=== PATIENT | female | born 1950 | race Two or more races ===

== ENCOUNTER 2017-07-29 19:20 | Emergency (ER) | payer MEDICARE ==
[~2017-07-29] VITALS: Ht 157.5 cm; Wt 88.2 kg
[~2017-07-29 19:20] MED LIST: GABA-530 PO
[2017-07-29 19:59] LABS: BASOPHILS % (AUTO) 0.5 % (0-1); EOSINOPHILS # (AUTO) 0.5 X10'3 (0-0.9); EOSINOPHILS % (AUTO) 5.1 % (0-6); HEMATOCRIT 37.7 % (35.0-45.0); HEMOGLOBIN 13.1 g/dl (12.0-16.0); LYMPHOCYTES # (AUTO) 2.5 X10'3 (1.1-4.8); LYMPHOCYTES % (AUTO) 23.7 % (21-51); MEAN CORPUSCULAR HGB CONC 34.6 % (33.0-36.5); MEAN CORPUSCULAR VOLUME 80.8 FL (78-98); MEAN PLATELET VOLUME 7.1 FL (7.4-10.4); MONOCYTES # (AUTO) 0.5 X10'3 (0-0.9); NEUTROPHILS # (AUTO) 6.9 X10'3 (1.8-7.7); NEUTROPHILS % (AUTO) 65.7 % (42-75); PLATELET COUNT 285 X10'3 (140-440); RED BLOOD COUNT 4.66 X10'6 (4.20-5.60); RED CELL DISTRIBUTION WIDTH 12.7 % (11.5-14.5); WHITE BLOOD COUNT 10.6 X10'3 (4.5-11.0)
[2017-07-29 20:01] LABS: D-DIMER 0.32 MG/L FEU (0-0.50); PARTIAL THROMBOPLASTIN TIME 25 SECONDS (22-32)
[2017-07-29 20:09] LABS: ALANINE AMINOTRANSFERASE 23 U/L (12-78); ALBUMIN 3.7 G/DL (3.4-5.0); ALBUMIN/GLOBULIN RATIO 0.9 (1.1-1.5); ALKALINE PHOSPHATASE 92 IU/L (46-116); ANION GAP 9 (8-16); ASPARTATE AMINO TRANSFERASE 18 U/L (10-37); BILIRUBIN,TOTAL 0.4 MG/DL (0.1-1.0); BLOOD UREA NITROGEN 19 MG/DL (7-18); BUN/CREATININE RATIO 15.2 (6.6-38.0); CALCIUM 9.4 MG/DL (8.5-10.1); CHLORIDE 94 MMOL/L (99-107); CREATININE 1.25 MG/DL (0.40-0.90); GLUCOSE 228 MG/DL (70-104); POTASSIUM 4.1 MMOL/L (3.5-5.1); SODIUM 132 MMOL/L (135-145); TOTAL CARBON DIOXIDE 29.4 MMOL/L (24-32); TOTAL PROTEIN 7.9 G/DL (6.4-8.2); eGFR 43 ML/MIN
[2017-07-29] MEDS ORDERED: azithromycin 250mg tablet PO ONE (21:10)
[2017-07-29] MEDS ORDERED: AZIT-63 PO (21:10)
[2017-07-29 21:47] VITALS: BP 140/66
== END 2017-07-29 21:46 | disposition home or self-care (01) ==
LOC: ER 19:20
DX: J40 Bronchitis, not specified as acute or chronic (principal); H66.90 Otitis media, unspecified, unspecified ear; I44.7 Left bundle-branch block, unspecified; I50.9 Heart failure, unspecified; G89.29 Other chronic pain; Z88.2 Allergy status to sulfonamides
CPT/HCPCS: 36415; 71045; 80053; 83880; 84484; 85025; 85379; 85610; 85730; 93005; 99285

== ENCOUNTER 2017-09-20 11:04 | Emergency (ER) | payer MEDICARE ==
[~2017-09-20] VITALS: Ht 157.5 cm; Wt 89.5 kg
[2017-09-20 11:36] LABS: BASOPHILS # (AUTO) 0.1 X10'3 (0-0.2); BASOPHILS % (AUTO) 0.7 % (0-1); EOSINOPHILS # (AUTO) 0.2 X10'3 (0-0.9); EOSINOPHILS % (AUTO) 1.7 % (0-6); HEMATOCRIT 39.1 % (35.0-45.0); HEMOGLOBIN 13.2 g/dl (12.0-16.0); LYMPHOCYTES # (AUTO) 1.7 X10'3 (1.1-4.8); LYMPHOCYTES % (AUTO) 15.1 % (21-51); MEAN CORPUSCULAR HEMOGLOBIN 28.1 PG (27.0-31.0); MEAN CORPUSCULAR HGB CONC 33.8 % (33.0-36.5); MEAN CORPUSCULAR VOLUME 83.1 FL (78-98); MEAN PLATELET VOLUME 6.9 FL (7.4-10.4); MONOCYTES # (AUTO) 0.7 X10'3 (0-0.9); MONOCYTES % (AUTO) 6.6 % (2-12); NEUTROPHILS # (AUTO) 8.6 X10'3 (1.8-7.7); NEUTROPHILS % (AUTO) 75.9 % (42-75); PLATELET COUNT 290 X10'3 (140-440); RED BLOOD COUNT 4.71 X10'6 (4.20-5.60); RED CELL DISTRIBUTION WIDTH 13.4 % (11.5-14.5); WHITE BLOOD COUNT 11.4 X10'3 (4.5-11.0)
[2017-09-20 11:53] LABS: ALANINE AMINOTRANSFERASE 30 U/L (12-78); ALBUMIN 3.5 G/DL (3.4-5.0); ALBUMIN/GLOBULIN RATIO 0.8 (1.1-1.5); ALKALINE PHOSPHATASE 96 IU/L (46-116); ANION GAP 8 (8-16); ASPARTATE AMINO TRANSFERASE 20 U/L (10-37); BILIRUBIN,TOTAL 0.5 MG/DL (0.1-1.0); BLOOD UREA NITROGEN 17 MG/DL (7-18); BUN/CREATININE RATIO 13.5 (6.6-38.0); CHLORIDE 97 MMOL/L (99-107); CREATININE 1.26 MG/DL (0.40-0.90); GLUCOSE 170 MG/DL (70-104); POTASSIUM 4.6 MMOL/L (3.5-5.1); SODIUM 132 MMOL/L (135-145); TOTAL PROTEIN 7.8 G/DL (6.4-8.2); eGFR 42 ML/MIN
[2017-09-20] MEDS ORDERED: ONDA4TAB6 PO (12:18)
[2017-09-20 12:48] VITALS: BP 140/70
[2017-09-20] MEDS ORDERED: TRAM50TA2 PO (12:49)
== END 2017-09-20 12:54 | disposition home or self-care (01) ==
LOC: ER 11:04
DX: M54.2 Cervicalgia (principal); M79.2 Neuralgia and neuritis, unspecified; I50.9 Heart failure, unspecified; G89.29 Other chronic pain; M19.90 Unspecified osteoarthritis, unspecified site; Z95.1 Presence of aortocoronary bypass graft; Z88.2 Allergy status to sulfonamides; Z79.899 Other long term (current) drug therapy
CPT/HCPCS: 36415; 71045; 80053; 84484; 85025; 93005; 99285

== ENCOUNTER 2017-10-16 10:25 | Observation (INO) | payer MEDICARE ==
[~2017-10-16] VITALS: Ht 157.5 cm; Wt 83.8 kg
[~2017-10-16 10:25] MED LIST changes: +ONDA4TAB6 PO; +TRAM50TA2 PO
[2017-10-16 10:50] LABS: BASOPHILS % (AUTO) 0.5 % (0-1); EOSINOPHILS # (AUTO) 0.4 X10'3 (0-0.9); EOSINOPHILS % (AUTO) 4.4 % (0-6); HEMATOCRIT 41.3 % (35.0-45.0); HEMOGLOBIN 13.8 g/dl (12.0-16.0); LYMPHOCYTES # (AUTO) 2.2 X10'3 (1.1-4.8); LYMPHOCYTES % (AUTO) 22.1 % (21-51); MEAN CORPUSCULAR HGB CONC 33.4 % (33.0-36.5); MEAN CORPUSCULAR VOLUME 83.8 FL (78-98); MONOCYTES # (AUTO) 0.7 X10'3 (0-0.9); MONOCYTES % (AUTO) 7.4 % (2-12); NEUTROPHILS # (AUTO) 6.5 X10'3 (1.8-7.7); NEUTROPHILS % (AUTO) 65.6 % (42-75); PLATELET COUNT 324 X10'3 (140-440); RED BLOOD COUNT 4.93 X10'6 (4.20-5.60); RED CELL DISTRIBUTION WIDTH 13.9 % (11.5-14.5); WHITE BLOOD COUNT 9.9 X10'3 (4.5-11.0)
[2017-10-16 11:01] LABS: PARTIAL THROMBOPLASTIN TIME 25 SECONDS (22-32); PROTHROMBIN TIME 9.9 SECONDS (9.0-12.0)
[2017-10-16 11:05] LABS: ALANINE AMINOTRANSFERASE 23 U/L (12-78); ALBUMIN 3.9 G/DL (3.4-5.0); ALBUMIN/GLOBULIN RATIO 0.8 (1.1-1.5); ALKALINE PHOSPHATASE 104 IU/L (46-116); ANION GAP 8 (8-16); ASPARTATE AMINO TRANSFERASE 17 U/L (10-37); BILIRUBIN,TOTAL 0.4 MG/DL (0.1-1.0); BLOOD UREA NITROGEN 13 MG/DL (7-18); BUN/CREATININE RATIO 11.2 (6.6-38.0); CALCIUM 9.5 MG/DL (8.5-10.1); CHLORIDE 97 MMOL/L (99-107); CREATININE 1.16 MG/DL (0.40-0.90); GLUCOSE 104 MG/DL (70-104); POTASSIUM 4.6 MMOL/L (3.5-5.1); SODIUM 134 MMOL/L (135-145); TOTAL CARBON DIOXIDE 28.9 MMOL/L (24-32); TOTAL PROTEIN 8.5 G/DL (6.4-8.2); eGFR 47 ML/MIN
[2017-10-16] MEDS ORDERED: nitroGLYCERIN 1gm ointment UD TP ONE (11:25)
[2017-10-16] MEDS ORDERED: aspirin 81mg tab.chew PO ONE (11:25)
[2017-10-16] MEDS ORDERED: LEVO100T PO (12:31)
[2017-10-16] MEDS ORDERED: FURO-149 PO (12:31)
[2017-10-16] MEDS ORDERED: MELA3TAB PO (12:31)
[2017-10-16] MEDS ORDERED: LISI40TA4 PO (12:31)
[2017-10-16] MEDS ORDERED: ATOR40TA PO (12:31)
[2017-10-16] MEDS ORDERED: MECL-111 PO (12:31)
[2017-10-16] MEDS ORDERED: METO-384 PO (12:31)
[2017-10-16] MEDS ORDERED: METF500T PO (12:31)
[2017-10-16] MEDS ORDERED: FLUO20CA22 PO (12:31)
[2017-10-16] MEDS ORDERED: ONDA8TAB9 PO (12:31)
[2017-10-16] MEDS ORDERED: ASPI-1265 PO (12:31)
[2017-10-16] MEDS ORDERED: ONDA4TAB6 PO (12:32)
[2017-10-16] MEDS ORDERED: BACL10TA PO (12:32)
[2017-10-16] MEDS ORDERED: morphine 4 MG/ML inj SYRINge IV PRN ×2 (13:00)
[2017-10-16] MEDS ORDERED: insulin Lispro (HumaLOG) vial - multi-dose SQ SCH (13:00)
[2017-10-16] MEDS ORDERED: dextrose 50%-water 50ml dispensing syringe IV PRN ×2 (13:00)
[2017-10-16] MEDS ORDERED: glucagon, human recombinant 1mg kit SUBCUT PRN (13:00)
[2017-10-16] MEDS ORDERED: magnesium hydroxide 30ml (MOM) UD suspension PO PRN (13:00)
[2017-10-16] MEDS ORDERED: MESSAGE TO PHARMACY PO ONE (13:00)
[2017-10-16] MEDS ORDERED: ondansetron/PF 4mg/2ml inj IV PRN (13:00)
[2017-10-16] MEDS ORDERED: mag hydrox/Alum hydrox/simeth 30ml oral suspension PO PRN (13:00)
[2017-10-16] MEDS ORDERED: dextrose ORAL solution 15 GM/59 ML bottle PO PRN ×2 (13:00)
[2017-10-16] MEDS ORDERED: nitroGLYCERIN 0.4mg SUBLingual tab SL PRN (13:00)
[2017-10-16] MEDS ORDERED: non-formulary drug (Ondansetron Hcl (Zofran) 1 TAB) PO SCH (13:20)
[2017-10-16] MEDS ORDERED: baclofen 10mg tablet PO PRN (13:20)
[2017-10-16] MEDS ORDERED: non-formulary drug (Meclizine HCl 1 TAB) PO SCH (13:20)
[2017-10-16] MEDS ORDERED: ondansetron 4mg rapidly disintigrating tab PO PRN (13:30)
[2017-10-16] MEDS ORDERED: meclizine 12.5mg tablet PO PRN (13:30)
[2017-10-16 14:14] LABS: HEMOGLOBIN A1C 6.2 % (4.5-6.2)
[2017-10-16 16:41] VITALS: BP 143/62
[2017-10-16] MEDS ORDERED: furosemide 40mg/4ml inj IV ONE (17:30)
[2017-10-16 18:00] VITALS: BP 125/67
[2017-10-16] MEDS: metFORMIN 500mg tablet PO SCH (20:31)
[2017-10-16] MEDS: furosemide 40mg tablet PO SCH (20:31)
[2017-10-16] MEDS: acetaminophen 325mg tablet PO PRN (20:32)
[2017-10-16] MEDS ORDERED: Melatonin 3mg tablet PO SCH (21:00)
[2017-10-16] MEDS ORDERED: insulin glargine (Lantus) pen - multi-dose SQ SCH (21:00)
[2017-10-17 05:05] LABS: BASOPHILS # (AUTO) 0.1 X10'3 (0-0.2); BASOPHILS % (AUTO) 0.8 % (0-1); EOSINOPHILS # (AUTO) 0.5 X10'3 (0-0.9); EOSINOPHILS % (AUTO) 4.7 % (0-6); HEMATOCRIT 35.9 % (35.0-45.0); HEMOGLOBIN 12.3 g/dl (12.0-16.0); LYMPHOCYTES # (AUTO) 2.2 X10'3 (1.1-4.8); LYMPHOCYTES % (AUTO) 22.1 % (21-51); MEAN CORPUSCULAR HEMOGLOBIN 28.1 PG (27.0-31.0); MEAN CORPUSCULAR HGB CONC 34.2 % (33.0-36.5); MEAN CORPUSCULAR VOLUME 82.3 FL (78-98); MONOCYTES # (AUTO) 0.8 X10'3 (0-0.9); MONOCYTES % (AUTO) 8.4 % (2-12); NEUTROPHILS # (AUTO) 6.4 X10'3 (1.8-7.7); PLATELET COUNT 274 X10'3 (140-440); RED BLOOD COUNT 4.36 X10'6 (4.20-5.60); RED CELL DISTRIBUTION WIDTH 14.2 % (11.5-14.5); WHITE BLOOD COUNT 10.1 X10'3 (4.5-11.0)
[2017-10-17 05:32] LABS: ALBUMIN 3.1 G/DL (3.4-5.0); ANION GAP 10 (8-16); BLOOD UREA NITROGEN 21 MG/DL (7-18); BUN/CREATININE RATIO 13.3 (6.6-38.0); CALCIUM 8.6 MG/DL (8.5-10.1); CHLORIDE 98 MMOL/L (99-107); CHOL/HDL RATIO 3.1 (0.00-4.99); CHOLESTEROL 159 MG/DL (0-200); CREATININE 1.58 MG/DL (0.40-0.90); GLUCOSE 153 MG/DL (70-104); HDL CHOLESTEROL 51 MG/DL (35-60); LDL CHOLESTEROL 79 MG/DL (50-100); POTASSIUM 3.7 MMOL/L (3.5-5.1); SODIUM 135 MMOL/L (135-145); TOTAL CARBON DIOXIDE 27.4 MMOL/L (24-32); TRIGLYCERIDES 219 MG/DL (20-135); eGFR 33 ML/MIN
[2017-10-17] MEDS: metFORMIN 500mg tablet PO SCH (07:42)
[2017-10-17] MEDS: furosemide 40mg tablet PO SCH (07:43)
[2017-10-17 07:50] VITALS: BP 131/75
[2017-10-17] MEDS: acetaminophen 325mg tablet PO PRN (07:54)
[2017-10-17] MEDS ORDERED: atorvastatin 20mg tablet PO SCH (08:00)
[2017-10-17] MEDS ORDERED: aspirin 81mg tablet.DR PO SCH (08:00)
[2017-10-17] MEDS ORDERED: metoprolol succinate 25mg (24-HOUR) SR. Tablet PO SCH (08:00)
[2017-10-17] MEDS ORDERED: levoTHYROXINE 100mcg tablet PO SCH (08:00)
[2017-10-17] MEDS ORDERED: non-formulary drug (Lisinopril* 1 TAB) PO SCH (08:00)
[2017-10-17] MEDS ORDERED: aspirin 81mg tab.chew PO SCH (08:00)
[2017-10-17] MEDS ORDERED: lisinopril 20mg tablet PO SCH (08:00)
[2017-10-17] MEDS ORDERED: non-formulary drug (Metoprolol Succinate 1 TAB) PO SCH (08:00)
[2017-10-17] MEDS ORDERED: non-formulary drug (Atorvastatin Calcium* (Lipitor*) 1 TAB) PO SCH (08:00)
[2017-10-17] MEDS ORDERED: FLUoxetine 20mg capsule PO SCH (08:00)
[2017-10-17 12:00] VITALS: BP 137/60
== END 2017-10-17 14:50 | disposition home or self-care (01) ==
LOC: ER 10:25 → ED HOLD 13:00 → EDBEDREQ 15:56 → SUR 3N 16:25
PROVIDERS: ADMIT Internal Medicine; ATTEND Internal Medicine
DX: R00.2 Palpitations (principal); R07.89 Other chest pain; E03.9 Hypothyroidism, unspecified; E11.9 Type 2 diabetes mellitus without complications; E78.5 Hyperlipidemia, unspecified; E78.00 Pure hypercholesterolemia, unspecified; F32.9 Major depressive disorder, single episode, unspecified; I11.0 Hypertensive heart disease with heart failure; I50.9 Heart failure, unspecified; I25.10 Atherosclerotic heart disease of native coronary artery without angina pectoris; J45.909 Unspecified asthma, uncomplicated; R42 Dizziness and giddiness; G89.29 Other chronic pain; R06.02 Shortness of breath; M19.90 Unspecified osteoarthritis, unspecified site; Z95.1 Presence of aortocoronary bypass graft; Z83.3 Family history of diabetes mellitus; Z79.899 Other long term (current) drug therapy; Z96.651 Presence of right artificial knee joint; Z90.49 Acquired absence of other specified parts of digestive tract
CPT/HCPCS: 36415; 71045; 80048; 80053; 80061; 82948; 83036; 83880; 84484; 85025; 85610; 85730; 87070; 93005; 93306; 96374; 99285; G0378; J1940; J1815

== ENCOUNTER 2017-10-26 14:23 | Emergency (ER) | payer MEDICARE ==
[~2017-10-26] VITALS: Ht 157.5 cm; Wt 90.6 kg
[~2017-10-26 14:23] MED LIST changes: +ASPI-1265 PO; +ATOR40TA PO; +BACL10TA PO; +FLUO20CA22 PO; +FURO-149 PO; -GABA-530 PO; +LEVO100T PO; +LISI40TA4 PO; +MECL-111 PO; +MELA3TAB PO; +METF500T PO; +METO-384 PO; -TRAM50TA2 PO
[2017-10-26] MEDS ORDERED: aspirin 81mg tab.chew PO ONE (15:10)
[2017-10-26 15:37] LABS: BASOPHILS # (AUTO) 0.1 X10'3 (0-0.2); BASOPHILS % (AUTO) 0.9 % (0-1); EOSINOPHILS # (AUTO) 0.4 X10'3 (0-0.9); EOSINOPHILS % (AUTO) 3.5 % (0-6); HEMATOCRIT 37.8 % (35.0-45.0); HEMOGLOBIN 13.1 g/dl (12.0-16.0); LYMPHOCYTES # (AUTO) 1.9 X10'3 (1.1-4.8); MEAN CORPUSCULAR HEMOGLOBIN 28.4 PG (27.0-31.0); MEAN CORPUSCULAR HGB CONC 34.5 % (33.0-36.5); MEAN CORPUSCULAR VOLUME 82.3 FL (78-98); MEAN PLATELET VOLUME 7.4 FL (7.4-10.4); MONOCYTES # (AUTO) 0.7 X10'3 (0-0.9); MONOCYTES % (AUTO) 7.2 % (2-12); NEUTROPHILS # (AUTO) 7.3 X10'3 (1.8-7.7); NEUTROPHILS % (AUTO) 70.4 % (42-75); PLATELET COUNT 266 X10'3 (140-440); RED CELL DISTRIBUTION WIDTH 13.9 % (11.5-14.5); WHITE BLOOD COUNT 10.4 X10'3 (4.5-11.0)
[2017-10-26] MEDS ORDERED: normal saline 1000ML IV soln IVB ONE (15:45)
[2017-10-26 16:02] LABS: MAGNESIUM 1.4 MG/DL (1.5-2.4)
[2017-10-26 16:38] LABS: ALANINE AMINOTRANSFERASE 27 U/L (12-78); ALBUMIN 3.6 G/DL (3.4-5.0); ALBUMIN/GLOBULIN RATIO 0.8 (1.1-1.5); ALKALINE PHOSPHATASE 97 IU/L (46-116); ANION GAP 14 (8-16); ASPARTATE AMINO TRANSFERASE 24 U/L (10-37); BILIRUBIN,TOTAL 0.4 MG/DL (0.1-1.0); BLOOD UREA NITROGEN 15 MG/DL (7-18); BUN/CREATININE RATIO 11.5 (6.6-38.0); CALCIUM 9.2 MG/DL (8.5-10.1); CHLORIDE 96 MMOL/L (99-107); CREATININE 1.31 MG/DL (0.40-0.90); GLUCOSE 147 MG/DL (70-104); POTASSIUM 3.8 MMOL/L (3.5-5.1); SODIUM 133 MMOL/L (135-145); TOTAL CARBON DIOXIDE 23.5 MMOL/L (24-32); TOTAL PROTEIN 7.9 G/DL (6.4-8.2); eGFR 40 ML/MIN
[2017-10-26] MEDS: magnesium 1gm/100ml D5W IVPB 100 ML IV SCH ×2 (18:09→18:58)
[2017-10-26] MEDS ORDERED: magnesium oxide 400mg tablet PO ONE (18:30)
[2017-10-26 20:33] VITALS: BP 158/85
== END 2017-10-26 20:34 | disposition home or self-care (01) ==
LOC: ER 14:24
DX: R00.2 Palpitations (principal); E83.42 Hypomagnesemia; I25.10 Atherosclerotic heart disease of native coronary artery without angina pectoris; I50.9 Heart failure, unspecified; E78.00 Pure hypercholesterolemia, unspecified; I11.0 Hypertensive heart disease with heart failure; E11.9 Type 2 diabetes mellitus without complications; J45.909 Unspecified asthma, uncomplicated; G89.29 Other chronic pain; Z90.49 Acquired absence of other specified parts of digestive tract; Z95.1 Presence of aortocoronary bypass graft; Z98.890 Other specified postprocedural states; Z88.2 Allergy status to sulfonamides; Z79.82 Long term (current) use of aspirin; Z79.84 Long term (current) use of oral hypoglycemic drugs; Z79.899 Other long term (current) drug therapy
CPT/HCPCS: 36415; 71045; 80053; 83735; 83880; 84443; 84484; 85025; 93005; 96361; 96365; 96366; 99285; J7030

== ENCOUNTER 2017-11-13 08:57 | Emergency (ER) | payer MEDICARE ==
[~2017-11-13] VITALS: Ht 157.5 cm; Wt 91.0 kg
[2017-11-13] MEDS ORDERED: morphine 4 MG/ML inj SYRINge IV PRN (09:40)
[2017-11-13] MEDS ORDERED: normal saline 1000ML IV soln IVB ONE (09:40)
[2017-11-13] MEDS ORDERED: proCHLORperazine 10 MG/2 ml inj IV ONE (09:40)
[2017-11-13 10:06] LABS: BASOPHILS # (AUTO) 0.1 X10'3 (0-0.2); EOSINOPHILS # (AUTO) 0.3 X10'3 (0-0.9); EOSINOPHILS % (AUTO) 3.3 % (0-6); HEMATOCRIT 41.4 % (35.0-45.0); HEMOGLOBIN 13.9 g/dl (12.0-16.0); LYMPHOCYTES # (AUTO) 2.1 X10'3 (1.1-4.8); LYMPHOCYTES % (AUTO) 20.8 % (21-51); MEAN CORPUSCULAR HEMOGLOBIN 28.4 PG (27.0-31.0); MEAN CORPUSCULAR HGB CONC 33.6 % (33.0-36.5); MEAN CORPUSCULAR VOLUME 84.6 FL (78-98); MEAN PLATELET VOLUME 6.9 FL (7.4-10.4); MONOCYTES # (AUTO) 0.9 X10'3 (0-0.9); MONOCYTES % (AUTO) 8.8 % (2-12); NEUTROPHILS # (AUTO) 6.5 X10'3 (1.8-7.7); NEUTROPHILS % (AUTO) 66.1 % (42-75); PLATELET COUNT 300 X10'3 (140-440); RED BLOOD COUNT 4.89 X10'6 (4.20-5.60); WHITE BLOOD COUNT 9.9 X10'3 (4.5-11.0)
[2017-11-13 10:20] LABS: ALANINE AMINOTRANSFERASE 23 U/L (12-78); ALBUMIN 3.4 G/DL (3.4-5.0); ALBUMIN/GLOBULIN RATIO 0.8 (1.1-1.5); ALKALINE PHOSPHATASE 105 IU/L (46-116); ANION GAP 7 (8-16); ASPARTATE AMINO TRANSFERASE 16 U/L (10-37); BILIRUBIN,TOTAL 0.4 MG/DL (0.1-1.0); BLOOD UREA NITROGEN 10 MG/DL (7-18); BUN/CREATININE RATIO 8.5 (6.6-38.0); CALCIUM 9.3 MG/DL (8.5-10.1); CHLORIDE 97 MMOL/L (99-107); CREATININE 1.17 MG/DL (0.40-0.90); GLUCOSE 122 MG/DL (70-104); POTASSIUM 4.9 MMOL/L (3.5-5.1); SODIUM 133 MMOL/L (135-145); TOTAL CARBON DIOXIDE 29.5 MMOL/L (24-32); TOTAL PROTEIN 7.8 G/DL (6.4-8.2); eGFR 46 ML/MIN
[2017-11-13 10:40] VITALS: BP 135/63
== END 2017-11-13 11:10 | disposition home or self-care (01) ==
LOC: ER 08:58
DX: R51 Headache (principal); R11.2 Nausea with vomiting, unspecified; M54.2 Cervicalgia; G89.29 Other chronic pain; I25.10 Atherosclerotic heart disease of native coronary artery without angina pectoris; I11.0 Hypertensive heart disease with heart failure; I50.9 Heart failure, unspecified; E03.9 Hypothyroidism, unspecified; E11.9 Type 2 diabetes mellitus without complications; M19.90 Unspecified osteoarthritis, unspecified site; E78.00 Pure hypercholesterolemia, unspecified; J45.909 Unspecified asthma, uncomplicated; Z90.49 Acquired absence of other specified parts of digestive tract; Z95.1 Presence of aortocoronary bypass graft; Z88.2 Allergy status to sulfonamides; Z79.82 Long term (current) use of aspirin; Z79.84 Long term (current) use of oral hypoglycemic drugs; Z79.899 Other long term (current) drug therapy
CPT/HCPCS: 36415; 70450; 80053; 85025; 85651; 96361; 96374; 96375; 99285; J0780; J2270; J7030

== ENCOUNTER 2018-05-08 14:19 | Emergency (ER) | payer MEDICARE ==
[~2018-05-08] VITALS: Ht 157.5 cm; Wt 93.2 kg
[~2018-05-08 14:19] MED LIST changes: +TRIA15CR61 TP
[2018-05-08 15:02] LABS: BASOPHILS # (AUTO) 0.1 X10'3 (0-0.2); BASOPHILS % (AUTO) 0.5 % (0-1); EOSINOPHILS # (AUTO) 0.2 X10'3 (0-0.9); EOSINOPHILS % (AUTO) 1.6 % (0-6); HEMATOCRIT 39.3 % (35.0-45.0); HEMOGLOBIN 13.4 g/dl (12.0-16.0); LYMPHOCYTES # (AUTO) 2.3 X10'3 (1.1-4.8); LYMPHOCYTES % (AUTO) 21.8 % (21-51); MEAN CORPUSCULAR HEMOGLOBIN 28.5 PG (27.0-31.0); MEAN CORPUSCULAR VOLUME 83.9 FL (78-98); MEAN PLATELET VOLUME 7.2 FL (7.4-10.4); MONOCYTES # (AUTO) 0.8 X10'3 (0-0.9); MONOCYTES % (AUTO) 7.3 % (2-12); NEUTROPHILS # (AUTO) 7.4 X10'3 (1.8-7.7); NEUTROPHILS % (AUTO) 68.8 % (42-75); PLATELET COUNT 321 X10'3 (140-440); RED BLOOD COUNT 4.68 X10'6 (4.20-5.60); RED CELL DISTRIBUTION WIDTH 13.1 % (11.5-14.5); WHITE BLOOD COUNT 10.8 X10'3 (4.5-11.0)
[2018-05-08 15:24] VITALS: BP 148/73
[2018-05-08 15:31] LABS: GLUCOSE 220 MG/DL (70-104)
[2018-05-08 15:32] LABS: ALANINE AMINOTRANSFERASE 29 U/L (12-78); ALBUMIN 3.9 G/DL (3.4-5.0); ALBUMIN/GLOBULIN RATIO 0.9 (1.1-1.5); ALKALINE PHOSPHATASE 92 IU/L (46-116); ANION GAP 13 (8-16); ASPARTATE AMINO TRANSFERASE 18 U/L (10-37); BILIRUBIN,TOTAL 0.4 MG/DL (0.1-1.0); BLOOD UREA NITROGEN 23 MG/DL (7-18); BUN/CREATININE RATIO 16.9 (6.6-38.0); CALCIUM 9.4 MG/DL (8.5-10.1); CHLORIDE 97 MMOL/L (99-107); CREATININE 1.36 MG/DL (0.40-0.90); POTASSIUM 4.2 MMOL/L (3.5-5.1); SODIUM 134 MMOL/L (135-145); TOTAL CARBON DIOXIDE 24.4 MMOL/L (24-32); TOTAL PROTEIN 8.4 G/DL (6.4-8.2); eGFR 39 ML/MIN
--- NOTE | 2018-05-08 16:22 | NUR ---
Isabelle ramos in [facility] - 05/08/18 at 1632 by YODIT PT COMES IN TO TRIAGE
--- NOTE | 2018-05-08 16:32 | NUR ---
PT WANTS TO LEAVE, NEEDS TO TAKE CARE OF HER DOGS AND TALK TO HER FAMILY ABOUT A TRIP TOMORROW. PT WILL COME BACK POSSIBLEY EARLY IN THE MORNING. WILL COME BACK SOONER IT NEEDED.
--- NOTE | 2018-05-08 16:35 | NUR ---
PT INFORMED THAT HER LABS AND CXRAY WERE NOT NORMAL AND SHE NEEDS TO F/U WITH PMD IF SHE CHOOSES TO LEAVE. PT DECIDES TO LEAVE AND MAY COME BACK LATER OR EARLY IN MORNING.
[2018-05-09] MEDS ORDERED: AZIT-63 PO (18:35)
== END 2018-05-08 16:37 | disposition left against medical advice (07) ==
LOC: ER 14:20
DX: R06.02 Shortness of breath (principal); Z53.21 Procedure and treatment not carried out due to patient leaving prior to being seen by health care provider
CPT/HCPCS: 36415; 71046; 80053; 83880; 84439; 84443; 84484; 85025; 93005

== ENCOUNTER 2018-05-09 17:07 | Emergency (ER) | payer MEDICARE ==
[~2018-05-09] VITALS: Ht 157.5 cm; Wt 89.5 kg
[2018-05-09] MEDS ORDERED: normal saline 1000ML IV soln IVB ONE (17:35)
[2018-05-09 17:56] LABS: BASOPHILS # (AUTO) 0.1 X10'3 (0-0.2); BASOPHILS % (AUTO) 0.8 % (0-1); EOSINOPHILS # (AUTO) 0.2 X10'3 (0-0.9); EOSINOPHILS % (AUTO) 1.7 % (0-6); HEMOGLOBIN 12.9 g/dl (12.0-16.0); LYMPHOCYTES # (AUTO) 2.2 X10'3 (1.1-4.8); LYMPHOCYTES % (AUTO) 25.2 % (21-51); MEAN CORPUSCULAR HEMOGLOBIN 28.5 PG (27.0-31.0); MEAN CORPUSCULAR VOLUME 83.9 FL (78-98); MEAN PLATELET VOLUME 7.3 FL (7.4-10.4); MONOCYTES % (AUTO) 10.9 % (2-12); NEUTROPHILS # (AUTO) 5.5 X10'3 (1.8-7.7); NEUTROPHILS % (AUTO) 61.4 % (42-75); PLATELET COUNT 317 X10'3 (140-440); RED BLOOD COUNT 4.53 X10'6 (4.20-5.60); RED CELL DISTRIBUTION WIDTH 13.4 % (11.5-14.5); WHITE BLOOD COUNT 8.9 X10'3 (4.5-11.0)
[2018-05-09 17:59] LABS: ALANINE AMINOTRANSFERASE 26 U/L (12-78); ALBUMIN 3.5 G/DL (3.4-5.0); ALBUMIN/GLOBULIN RATIO 0.8 (1.1-1.5); ALKALINE PHOSPHATASE 87 IU/L (46-116); ANION GAP 6 (8-16); ASPARTATE AMINO TRANSFERASE 11 U/L (10-37); BILIRUBIN,TOTAL 0.3 MG/DL (0.1-1.0); BLOOD UREA NITROGEN 25 MG/DL (7-18); BUN/CREATININE RATIO 15.1 (6.6-38.0); CALCIUM 9.2 MG/DL (8.5-10.1); CHLORIDE 98 MMOL/L (99-107); CREATININE 1.66 MG/DL (0.40-0.90); GLUCOSE 259 MG/DL (70-104); POTASSIUM 4.3 MMOL/L (3.5-5.1); SODIUM 133 MMOL/L (135-145); TOTAL CARBON DIOXIDE 29.1 MMOL/L (24-32); TOTAL PROTEIN 7.7 G/DL (6.4-8.2); eGFR 31 ML/MIN
[2018-05-09 18:05] LABS: D-DIMER 0.42 MG/L FEU (0-0.50); INR 0.9 INR; PROTHROMBIN TIME 9.6 SECONDS (9.0-12.0)
[2018-05-09 18:07] LABS: MAGNESIUM 1.6 MG/DL (1.5-2.4); TROPONIN I < 0.04 NG/ML (0.0-0.05)
[2018-05-09] MEDS ORDERED: AZIT-63 PO (18:35)
[2018-05-09 18:37] VITALS: BP 155/56
[2018-05-09] MEDS ORDERED: azithromycin 250mg tablet PO ONE (18:45)
== END 2018-05-09 18:47 | disposition home or self-care (01) ==
LOC: ER 17:08
DX: J45.909 Unspecified asthma, uncomplicated (principal); I25.10 Atherosclerotic heart disease of native coronary artery without angina pectoris; I11.0 Hypertensive heart disease with heart failure; I50.9 Heart failure, unspecified; E78.00 Pure hypercholesterolemia, unspecified; E11.9 Type 2 diabetes mellitus without complications; E03.9 Hypothyroidism, unspecified; M19.90 Unspecified osteoarthritis, unspecified site; G89.29 Other chronic pain; Z90.49 Acquired absence of other specified parts of digestive tract; Z98.61 Coronary angioplasty status; Z98.890 Other specified postprocedural states; Z88.2 Allergy status to sulfonamides; Z79.82 Long term (current) use of aspirin; Z79.84 Long term (current) use of oral hypoglycemic drugs; Z79.899 Other long term (current) drug therapy
CPT/HCPCS: 36415; 71045; 80053; 83735; 83880; 84145; 84484; 85025; 85379; 85610; 93005; 99284; J7030

== ENCOUNTER 2018-10-19 15:40 | Emergency (ER) | payer MEDICARE ==
[~2018-10-19] VITALS: Ht 157.5 cm; Wt 91.0 kg
[~2018-10-19 15:40] MED LIST changes: +CEPH500C5 PO; -MELA3TAB PO; +MELA3TAB64 PO
[2018-10-19 16:43] VITALS: BP 132/56
== END 2018-10-19 18:12 | disposition left against medical advice (07) ==
LOC: ER 15:41
DX: R60.0 Localized edema (principal); Z53.21 Procedure and treatment not carried out due to patient leaving prior to being seen by health care provider

== ENCOUNTER 2019-02-05 18:47 | Emergency (ER) | payer MEDICARE ==
[~2019-02-05] VITALS: Ht 157.5 cm; Wt 90.0 kg
[2019-02-05 19:33] LABS: BASOPHILS # (AUTO) 0.1 X10'3 (0-0.2); BASOPHILS % (AUTO) 0.6 % (0-1); EOSINOPHILS # (AUTO) 0.4 X10'3 (0-0.9); EOSINOPHILS % (AUTO) 3.6 % (0-6); HEMATOCRIT 36.4 % (35.0-45.0); HEMOGLOBIN 12.4 g/dl (12.0-16.0); LYMPHOCYTES # (AUTO) 1.6 X10'3 (1.1-4.8); LYMPHOCYTES % (AUTO) 15.7 % (21-51); MEAN CORPUSCULAR HEMOGLOBIN 27.6 PG (27.0-31.0); MEAN CORPUSCULAR HGB CONC 34.1 g/dL (33.0-36.5); MEAN CORPUSCULAR VOLUME 80.8 FL (78-98); MONOCYTES # (AUTO) 1.4 X10'3 (0-0.9); MONOCYTES % (AUTO) 13.3 % (2-12); NEUTROPHILS % (AUTO) 66.8 % (42-75); PLATELET COUNT 270 X10'3 (140-440); RED BLOOD COUNT 4.51 X10'6 (4.20-5.60); RED CELL DISTRIBUTION WIDTH 13.5 % (11.5-14.5); WHITE BLOOD COUNT 10.5 X10'3 (4.5-11.0)
[2019-02-05 19:44] LABS: ALANINE AMINOTRANSFERASE 99 U/L (12-78); ALBUMIN 3.4 G/DL (3.4-5.0); ALBUMIN/GLOBULIN RATIO 0.8 (1.1-1.5); ALKALINE PHOSPHATASE 127 IU/L (46-116); ANION GAP 7 (8-16); ASPARTATE AMINO TRANSFERASE 146 U/L (10-37); BILIRUBIN,TOTAL 0.4 MG/DL (0.1-1.0); BLOOD UREA NITROGEN 28 MG/DL (7-18); BUN/CREATININE RATIO 20.1 (6.6-38.0); CALCIUM 8.7 MG/DL (8.5-10.1); CHLORIDE 100 MMOL/L (99-107); CREATININE 1.39 MG/DL (0.40-0.90); GLUCOSE 188 MG/DL (70-104); POTASSIUM 4.1 MMOL/L (3.5-5.1); SODIUM 135 MMOL/L (135-145); TOTAL CARBON DIOXIDE 28.5 MMOL/L (24-32); TOTAL PROTEIN 7.8 G/DL (6.4-8.2); eGFR 38 ML/MIN
[2019-02-05 19:52] LABS: MAGNESIUM 1.5 MG/DL (1.5-2.4)
[2019-02-05] MEDS ORDERED: ondansetron 4mg rapidly disintigrating tab PO ONE (20:20)
[2019-02-05] MEDS ORDERED: LIDOcaine Viscous 15ml cup MM ONE (20:20)
[2019-02-05] MEDS ORDERED: mag hydrox/Alum hydrox/simeth 30ml oral suspension PO ONE (20:20)
[2019-02-05 20:38] LABS: LIPASE 307 U/L (73-393)
[2019-02-05] MEDS ORDERED: acetaminophen 325mg tablet PO ONE (21:15)
[2019-02-05] MEDS ORDERED: OMEP40CA13 PO (21:16)
[2019-02-05 21:39] VITALS: BP 135/68
== END 2019-02-05 21:41 | disposition home or self-care (01) ==
LOC: ER 18:48
DX: R07.89 Other chest pain (principal); R94.5 Abnormal results of liver function studies; R10.12 Left upper quadrant pain; R10.13 Epigastric pain; I10 Essential (primary) hypertension; J44.9 Chronic obstructive pulmonary disease, unspecified; E11.9 Type 2 diabetes mellitus without complications; E03.9 Hypothyroidism, unspecified; M19.90 Unspecified osteoarthritis, unspecified site; G89.29 Other chronic pain; Z90.49 Acquired absence of other specified parts of digestive tract; Z95.1 Presence of aortocoronary bypass graft; Z98.890 Other specified postprocedural states; Z88.2 Allergy status to sulfonamides; Z79.82 Long term (current) use of aspirin; Z79.899 Other long term (current) drug therapy
CPT/HCPCS: 36415; 71045; 80053; 83690; 83735; 83880; 84484; 85025; 93005; 99284

== ENCOUNTER 2019-03-13 11:15 | Emergency (ER) | payer MEDICARE ==
[~2019-03-13] VITALS: Ht 157.5 cm; Wt 86.8 kg
[~2019-03-13 11:15] MED LIST changes: +FLUO-167 PO; -FLUO20CA22 PO
[2019-03-13 12:12] LABS: BASOPHILS # (AUTO) 0.1 X10'3 (0-0.2); EOSINOPHILS # (AUTO) 0.4 X10'3 (0-0.9); EOSINOPHILS % (AUTO) 5.2 % (0-6); HEMATOCRIT 37.7 % (35.0-45.0); HEMOGLOBIN 12.8 g/dl (12.0-16.0); LYMPHOCYTES # (AUTO) 1.4 X10'3 (1.1-4.8); LYMPHOCYTES % (AUTO) 20.6 % (21-51); MEAN CORPUSCULAR HEMOGLOBIN 27.9 PG (27.0-31.0); MEAN CORPUSCULAR VOLUME 82.1 FL (78-98); MONOCYTES # (AUTO) 0.8 X10'3 (0-0.9); MONOCYTES % (AUTO) 11.4 % (2-12); NEUTROPHILS # (AUTO) 4.3 X10'3 (1.8-7.7); NEUTROPHILS % (AUTO) 61.8 % (42-75); PLATELET COUNT 353 X10'3 (140-440); RED BLOOD COUNT 4.59 X10'6 (4.20-5.60); RED CELL DISTRIBUTION WIDTH 13.6 % (11.5-14.5); WHITE BLOOD COUNT 6.9 X10'3 (4.5-11.0)
[2019-03-13 12:24] LABS: ALANINE AMINOTRANSFERASE 39 U/L (12-78); ALBUMIN 3.9 G/DL (3.4-5.0); ALBUMIN/GLOBULIN RATIO 0.9 (1.1-1.5); ALKALINE PHOSPHATASE 82 IU/L (46-116); ANION GAP 6 (8-16); ASPARTATE AMINO TRANSFERASE 27 U/L (10-37); BILIRUBIN,TOTAL 0.4 MG/DL (0.1-1.0); BLOOD UREA NITROGEN 22 MG/DL (7-18); BUN/CREATININE RATIO 15.3 (6.6-38.0); CALCIUM 9.2 MG/DL (8.5-10.1); CHLORIDE 98 MMOL/L (99-107); CREATININE 1.44 MG/DL (0.40-0.90); GLUCOSE 119 MG/DL (70-104); POTASSIUM 4.9 MMOL/L (3.5-5.1); SODIUM 132 MMOL/L (135-145); TOTAL CARBON DIOXIDE 28.5 MMOL/L (24-32); TOTAL PROTEIN 8.2 G/DL (6.4-8.2); eGFR 36 ML/MIN
[2019-03-13] MEDS ORDERED: normal saline 1000ML IV soln IVB ONE (12:30)
[2019-03-13] MEDS ORDERED: PROC-8 PO (12:37)
[2019-03-13] MEDS ORDERED: MECL-111 PO (12:37)
[2019-03-13 13:38] VITALS: BP 147/57
== END 2019-03-13 13:39 | disposition home or self-care (01) ==
LOC: ER 11:15
DX: R42 Dizziness and giddiness (principal); R09.89 Other specified symptoms and signs involving the circulatory and respiratory systems; I25.10 Atherosclerotic heart disease of native coronary artery without angina pectoris; I11.0 Hypertensive heart disease with heart failure; I50.9 Heart failure, unspecified; E78.00 Pure hypercholesterolemia, unspecified; J44.9 Chronic obstructive pulmonary disease, unspecified; E11.9 Type 2 diabetes mellitus without complications; E03.9 Hypothyroidism, unspecified; M19.90 Unspecified osteoarthritis, unspecified site; G89.29 Other chronic pain; Z90.49 Acquired absence of other specified parts of digestive tract; Z95.1 Presence of aortocoronary bypass graft; Z98.890 Other specified postprocedural states; Z88.2 Allergy status to sulfonamides; Z79.82 Long term (current) use of aspirin; Z79.84 Long term (current) use of oral hypoglycemic drugs; Z79.899 Other long term (current) drug therapy
CPT/HCPCS: 36415; 71045; 80053; 84484; 85025; 93005; 96360; 99284; J7030

== ENCOUNTER 2025-02-14 13:48 | Emergency (ER) | payer BC, MEDICARE ==
[~2025-02-14] VITALS: Ht 157.5 cm; Wt 87.0 kg
[~2025-02-14 13:48] MED LIST changes: +AMLO5TAB16 PO; +ASCO-10 PO; -BACL10TA PO; -CEPH500C5 PO; +CHOL400T32 PO; +FENO160T PO; -FLUO-167 PO; +FLUO40CA10 PO; +LISI40TA20 PO; -LISI40TA4 PO; -MECL-111 PO; +MELA3TAB39 PO; -MELA3TAB64 PO; +METF-438 PO; -METF500T PO; -METO-384 PO; +METO-411 PO; -ONDA4TAB6 PO; +PNV1TABL75 PO; -TRIA15CR61 TP
[2025-02-14 14:01] VITALS: TEMP 98.2
[2025-02-14 14:22] VITALS: BP 150/65; PULSE 67; RESP 18; O2SAT 97
--- NOTE | 2025-02-14 14:42 | RADIOLOGY REPORT ---
CLINICAL HISTORY: FALL TECHNIQUE: Helical scanning was performed of the head from the skull base to the vertex. Multiplanar reconstructions were performed. This exam was performed according to our departmental dose optimization program. Up-to-date CT equipment and radiation dose reduction techniques are utilized as appropriate. CTDI 70 DLP 1289 COMPARISON: None FINDINGS: There is no evidence for acute intracranial hemorrhage, acute ischemic changes, mass, mass effect, or extra-axial fluid collection. There is no hydrocephalus or midline shift. There is no effacement of the cerebral sulci and basal subarachnoid cisterns. The coffey-white matter differentiation is well maintained. The imaged paranasal sinuses are clear. IMPRESSION: NO ACUTE INTRACRANIAL ABNORMALITY SEEN.
--- NOTE | 2025-02-14 14:44 | ELECTROCARDIOGRAPH REPORT ---
[facility] Test Date: 2025-02-14 Test Time: 14:40:52 Pat Name: LORRAINE CHAUDHARY Department: [facility] Patient ID: [facility]-[id number] Room: Gender: F Rheologist: : 1950 Requested By: PIETRO GOMES Order Number: [id number] Reading MD: Dr. JAYLON Lantigua Measurements Intervals [place] Rate: 67 P: -40 WA: 153 QRS: 45 QRSD: 149 T: 223 QT: 425 QTc: 449 Interpretive Statements Sinus rhythm Atrial premature complex Left bundle branch block Electronically Signed On 02-15-2025 17:18:[address] JAYLON Lantigua Please click the below link to view image of tracing.
--- NOTE | 2025-02-14 14:45 | RADIOLOGY REPORT ---
EXAM: CT CT CERVICAL SPINE HISTORY: FALL, pain COMPARISON: None CTDIvol 23.01 mGy, DLP 514.9 mGy*cm. TECHNIQUE: Multiple axial CT images of the spine were obtained using bone algorithm. Axial and coronal reformatting was done. Bone and soft tissue windows were reviewed. FINDINGS: No evidence of definite acute fracture, spinal dislocation, or significant appearing acute subluxation is seen. IMPRESSION: No acute cervical spine abnormality.
[2025-02-14] MEDS: TETanus/Pertussis (Acell)/Diphther VAC/PF (Tdap-Adult) 0.5ml syringe IMVAC ONE (15:06)
--- NOTE | 2025-02-14 15:18 | RADIOLOGY REPORT ---
EXAM: DI KNEE, COMP 4 VW MIN INDICATION: Fall/Knee Pain TECHNIQUE: 3 views of the right knee COMPARISON: None FINDINGS/IMPRESSION: No radiographic evidence of an acute osseous abnormality. There is no acute fracture, osseous malalignment, or aggressive focal osseous lesion. Moderate to severe medial weight-bearing compartment joint space loss. Vascular calcifications. Small possible bone island of the medial aspect of the medial f emoral condyle to epicondyle. No knee joint effusion.
--- NOTE | 2025-02-14 15:23 | Physician Documentation ---
History of Present Illness ~ Chief Complaint: Mechanical Fall Stated Complaint: FALL Time Seen by MD: 14:21 Primary Medical Doctor: dr cassidy Cade Mode of Arrival: EMS, Stretcher [facility] This is a 74-year-old female who presents by ambulance after a mechanical trip and fall striking her right lateral forehead and right knee, patient reports no loss of consciousness and no other injuries. Patient reports no new numbness or weakness in extremities and no vomiting. Patient reports that she is on a blood thinner for AFib. Patient reports no other acute symptoms or concerns. Tetanus within 5 Years?: Yes Medication Reconciliation Allergies: Coded Allergies: Sulfa (Sulfonamide Antibiotics) (Verified Allergy, Intermediate, RASH, 02/05/19) Scheduled Amlodipine Besylate (Amlodipine Besylate), 1 TAB PO HS, (Reported) Ascorbic Acid (Vitamin C), 1 TAB PO DAILY, (Reported) Aspirin (Aspirin), 1 TAB.CHEW PO DAILY, (Reported) Atorvastatin Calcium* (Lipitor*), 1 TAB PO DAILY, (Reported) Cholecalciferol (Vitamin D3) (Vitamin D-400), 1 TAB PO DAILY, (Reported) Fenofibrate (Fenofibrate), 1 TAB PO HS, (Reported) Fluoxetine HCl (Prozac), 1 CAP PO QAM, (Reported) Furosemide (Lasix), 40 MG PO DAILY, (Reported) Levothyroxine Sodium (Synthroid), 1 TAB PO DAILY, (Reported) Lisinopril* (Lisinopril*), 1 TAB PO DAILY, (Reported) Melatonin (Melatonin), 2 TAB PO HS, (Reported) Metformin HCl (Metformin HCl), 1 TAB PO Q12H, (Reported) Metoprolol Succinate (Metoprolol Succinate), 1 TAB PO DAILY, (Reported) Pnv No.122/Iron/Folic Acid ( Multi Tablet), 1 TAB PO DAILY, (Reported) Past Medical History Past Medical History: Vertigo, Coronary Artery Disease, Congestive Heart Failure, High Cholesterol, Hypertension, Asthma, COPD, Diabetes, Hypothyroidism, Arthritis, Chronic Pain Past Surgical History: appendectomy, cholecystectomy, coronary bypass surgery, orthopedic surgeries Other Past Family History: NONCONTRIBUTORY Alcohol Use: Occasionally Drug Use: none Lives with: Family Lives In: Home Occupation: retired Review of Systems ROS As stated above in the HPI, otherwise all systems are reviewed and negative. Physical Exam Vital Signs: Temperature: 98.2, Source: Temporal, Heart Rate: 67, Respiratory Rate: 18, BP: 150/65, Pulse Oximetry: 97, Weight: 87.000 Oxygen Flow Rate: 0 Physical Exam VITALS: Reviewed and as above. GENERAL: Alert, nontoxic appearing, no apparent distress. HEENT: Approximately 2 cm laceration to the right lower lateral forehead/eyebro w, small amount of swelling to the area, no periorbital swelling, no orbital involvement, PERRLA, EOMI RESPIRATORY: No increased work of breathing, no respiratory distress, speaking in full clear sentences, clear lung sounds in all [place] CV: Regular rate and rhythm no murmur MUSCULOSKELETAL: Medial aspect of right knee tender to palpation other aspects nontender palpation, range of motion intact though with some mild pain SKIN: Abrasion to right medial knee NEURO: GCS 15 Procedures Laceration Repair : Location: Right lateral lower forehead/eyebrow Length (cm): 2 Anesthesia: Lidocaine w/ Epi Volume Anesthetic (mls): 4 Prep: irrigated by nurse Margins: revised Foreign Body: not identified Repaired: skin Wound Repaired With: sutures Suture Size/Type: 6-0, prolene Layer Closure?: No Splint Applied?: No Sling Applied?: No Tolerated Procedure Well?: yes, no complications Progress Results/Orders Results/Orders Orders - AIDEN HIGUERA Laceration/I&D Tray Set Up (02/14/25 14:51) Dermabond To Bedside (02/14/25 14:51) Knee, Complete (02/14/25 15:08) Completed Orders - AIDEN HIGUERA Lidocaine 1% W/Epi 1:100,000 (Xylocaine (02/14/25 14:55) Tetanus/Pertuss/Diph Acell/Pf (Boostrix (02/14/25 14:55) Knee, Complete (02/14/25 15:08) Acetaminophen 325mg Tablet (Tylenol Tabl (02/14/25 15:55) Medications Received in ER Medications (Trade) Dose Ordered Sig/[place] Route PRN Reason Start Time Stop Time Status Last Admin Dose Admin (Tylenol tablet) 650 mg ONCE ONCE PO 02/14/25 15:55 02/14/25 15:56 DC 02/14/25 16:15 650 MG Vital Signs 02/14/25 02/14/25 02/14/25 14:01 14:22 14:22 Temp 98.2 Pulse 67 67 Resp 18 18 B/P (MAP) 169/75 150/65 (93) Pulse Ox 99 97 O2 Flow Rate 0 0 EKG/XRAY/CT/US/VASC/MRI EKG : Additional Comment EKG at 1440 interpreted by myself as: Sinus rhythm at a rate of 67, normal axis, left bundle branch block Bone/Soft Tissue X-Ray (Ext.) : Additional Comment Exam: KNEE, COMP 4 VW MIN EXAM: DI KNEE, COMP 4 VW MIN INDICATION: Fall/Knee Pain TECHNIQUE: 3 views of the right knee COMPARISON: None FINDINGS/IMPRESSION: No radiographic evidence of an acute osseous abnormality. There is no acute fracture, osseous malalignment, or aggressive focal osseous lesion. Moderate to severe medial weight-bearing compartment joint space loss. Vascular calcifications. Small possible bone island of the medial aspect of the medial femoral condyle to epicondyle. No knee joint effusion. Electronically Signed by:STEVEN WEAVER MD Date & Time: 02/14/251515 Dictated by: STEVEN WEAEVR MD Dictation date and time: 02/14/251515 I have reviewed and agree with the radiology report. I have reviewed and interpreted the imaging as: No fracture or dislocation CT #1: Impression Exam: CT HEAD CLINICAL HISTORY: FALL TECHNIQUE: Helical scanning was performed of the head from the skull base to the vertex. Multiplanar reconstructions were performed. This exam was performed according to our departmental dose optimization program. Up-to-date CT equipment and radiation dose reduction techniques are utilized as appropriate. CTDI 70 DLP 1289 COMPARISON: None FINDINGS: There is no evidence for acute intracranial hemorrhage, acute ischemic changes, mass, mass effect, or extra-axial fluid collection. There is no hydrocephalus or midline shift. There is no effacement of the cerebral sulci and basal subarachnoid cisterns. The coffey-white matter differentiation is well maintained. The imaged paranasal sinuses are clear. IMPRESSION: NO ACUTE INTRACRANIAL ABNORMALITY SEEN. Electronically Signed by:MICHAEL MCCRACKEN MD Date & Time: 02/14/251439 Dictated by: MICHAEL MCCRACKEN MD Dictation date and time: 02/14/251439 I have reviewed and agree with the radiology report. I have reviewed and interpreted the imaging as: No intracranial hemorrhage CT #2: Impression Exam: CT CERVICAL SPINE EXAM: CT CT CERVICAL SPINE HISTORY: FALL, pain COMPARISON: None CTDIvol 23.01 mGy, DLP 514.9 mGy*cm. TECHNIQUE: Multiple axial CT images of the spine were obtained using bone algorithm. Axial and coronal reformatting was done. Bone and soft tissue windows were reviewed. FINDINGS: No evidence of definite acute fracture, spinal dislocation, or significant appearing acute subluxation is seen. IMPRESSION: No acute cervical spine abnormality. Electronically Signed by:TRE ARELLANO MD Date & Time: 02/14/251442 Dictated by: TRE ARELLANO MD Dictation date and time: 02/14/251442 I have reviewed and agree with the radiology report. I have reviewed and interpreted the imaging as: No vertebral fracture or vertebral misalignment Medical Decision Making Additional information obtaine: N/A Findings This 74-year-old female presented with a head injury to right lateral forehead and right knee after a mechanical fall, imaging of head and neck did not demonstrate evidence of intracranial hemorrhage or C-spine injury, and knee x- ray did not demonstrate evidence of fracture or dislocation. Patient was otherwise well-appearing and it was reassuring patient reported no loss of consciousness. Laceration to the right lateral forehead/eyebrow was shallow and there was no evidence of deep tissue involvement or retained foreign body and was successfully reapproximated utilizing four simple interrupted sutures. Patient is appropriate for outpatient follow up and discharged with follow up instructions, return to care precautions, and home care instructions which she verbalized understanding of. Differential Dx:Considerations: Include: Closed head injury, Fracture(s), Pneumothorax, Cerebral contusion, Spine injury, Vascular injury, Abrasion(s), Foreign body(s), Laceration(s), Other (Intracranial hemorrhage) Departure Time of Disposition: 15:55 Disposition: 01 HOME / SELF CARE / HOMELESS Impression: Primary Impression: Laceration of eyebrow and forehead Qualified Codes: S01.81XA - Laceration without foreign body of other part of head, initial encounter; S01.111A - Laceration without foreign body of right eyelid and periocular area, initial encounter Additional Impressions: Abrasion, right knee, initial encounter Right knee pain Qualified Codes: M25.561 - Pain in right knee Fall Qualified Codes: W19.XXXA - Unspecified fall, initial encounter Condition: Improved Discharge Instructions: Facial Laceration Additional Instructions: Keep the area clean and dry, you may wash it gently but do not soak the sutured area. Please return in five days to your choice of medical provider for evaluation for suture removal, you may return to this emergency department, your primary care, or an urgent care. You may use ibuprofen and or Tylenol as needed for pain as directed by [id number] packaging. Please follow up with your primary care provider in the next few days. Please return to the emergency department for any new or worsening concerning symptoms including but not limited to persistent vomiting, confusion, or new numbness or weakness. Referrals: NO PRIMARY CARE PROVIDER (PCP) Education Educated: Patient, Family Educated regarding: diagnosis, treatment, prognosis, need for follow up Signature Scribe Signature: No scribe Attestation: The note accurately reflects work and decisions made by me.MELANY Patel 02/14/25 23:52 AIDEN HIGUERA Feb 14, 2025 15:23
[2025-02-14] MEDS: LIDOcaine 1% W/epiNEPHrine 1:100,000 20ml vial IJ ONE (15:25)
== END 2025-02-14 16:16 | disposition home or self-care (01) ==
LOC: ER 13:48
DX: S01.81XA Laceration without foreign body of other part of head, initial encounter (principal); S01.111A Laceration without foreign body of right eyelid and periocular area, initial encounter; S80.211A Abrasion, right knee, initial encounter; E03.9 Hypothyroidism, unspecified; E11.9 Type 2 diabetes mellitus without complications; E78.00 Pure hypercholesterolemia, unspecified; G89.29 Other chronic pain; I10 Essential (primary) hypertension; I25.10 Atherosclerotic heart disease of native coronary artery without angina pectoris; I48.91 Unspecified atrial fibrillation; M19.90 Unspecified osteoarthritis, unspecified site; J44.9 Chronic obstructive pulmonary disease, unspecified; Z88.2 Allergy status to sulfonamides; Z79.01 Long term (current) use of anticoagulants; Z90.49 Acquired absence of other specified parts of digestive tract; Z95.1 Presence of aortocoronary bypass graft; Z79.82 Long term (current) use of aspirin; Z79.899 Other long term (current) drug therapy; Z72.89 Other problems related to lifestyle; W01.0XXA Fall on same level from slipping, tripping and stumbling without subsequent striking against object, initial encounter; Y93.89 Activity, other specified; Y92.89 Other specified places as the place of occurrence of the external cause; Y99.8 Other external cause status
CPT/HCPCS: 12011; 70450; 72125; 73564; 90471; 90715; 93005; 99285; A6449